=== PATIENT | male | born 1980 | race Caucasian/White ===

== ENCOUNTER 2022-11-22 07:15 | Inpatient (IN) | payer OTHER ==
[~2022-11-22] VITALS: Ht 177 cm; Wt 118.0 kg
--- NOTE | 2022-11-22 07:23 | ED Abdominal Pain ---
General Chief Complaint: Abdominal/GI Problems Stated Complaint: ABD PAIN History of Present Illness Date Seen by Provider: Nov 22, 2022 Time Seen by Provider: 07:23 Initial Comments 42-year-old male presents with epigastric pain. He reports that started yesterday radiates to his back. That he has some dry heaves with it. Patient reports a history of a gastric bypass in 2018. Reports that his stomach is really tight and painful. No actual vomiting, diarrhea. Patient reports that he has this pain on and off ever since the bypass that she is worse today that he "cannot take the pain more" patient has not followed up with GI specialist or primary care provider recently. Allergies and Home Medications Allergies Coded Allergies: No Known Drug Allergies (Unverified , 11/22/22) Patient Home Medication List Home Medication List Reviewed: Yes Review of Systems Review of Systems Constitutional: No chills, No fever Respiratory: Denies Cough, Denies Shortness of Air Cardiovascular: Denies Chest Pain, Denies Lightheadedness, Denies Palpitations Gastrointestinal: Abdominal Pain; Denies Diarrhea; Nausea; Denies Vomiting Genitourinary: No Symptoms Reported Musculoskeletal: no symptoms reported Skin: no symptoms reported Psychiatric/Neurological: No Symptoms Reported Endocrine: No Symptoms Reported Physical Exam Vital Signs Vital Signs - First Documented 11/22/22 07:23 Temp 35.7 Pulse 71 Resp 20 B/P (MAP) 133/91 (105) Pulse Ox 100 Capillary Refill : Height/Weight/BMI Height: '" Weight: lbs. oz. kg; BMI Method: General Appearance: WD/WN, no apparent distress Respiratory: lungs clear, normal breath sounds, no respiratory distress Cardiovascular: normal peripheral pulses, regular rate, rhythm Gastrointestinal: soft; No distended, No guarding, No rebound; tenderness (Mild epigastric) Extremities: normal range of motion, normal inspection Back: no CVA tenderness Neurologic/Psychiatric: alert, normal mood/affect, oriented x 3 Skin: normal color, warm/dry Progress/Results/Core Measures Results/Orders Lab Results Laboratory Tests Test 11/22/22 07:35 11/22/22 07:45 Range/Units White Blood Count 10.3 4.3-11.0 10^3/uL Red Blood Count 5.17 4.30-5.52 10^6/uL Hemoglobin 15.1 13.3-17.7 g/dL Hematocrit 46 40-54 % Mean Corpuscular Volume 88 80-99 fL Mean Corpuscular Hemoglobin 29 25-34 pg Mean Corpuscular Hemoglobin Concent 33 32-36 g/dL Red Cell Distribution Width 13.4 10.0-14.5 % Platelet Count 242 130-400 10^3/uL Mean Platelet Volume 8.2 L 9.0-12.2 fL Immature Granulocyte % (Auto) 0 % Neutrophils (%) (Auto) 70 42-75 % Lymphocytes (%) (Auto) 22 12-44 % Monocytes (%) (Auto) 8 0-12 % Eosinophils (%) (Auto) 0 0-10 % Basophils (%) (Auto) 0 0-10 % Neutrophils # (Auto) 7.2 1.8-7.8 10^3/uL Lymphocytes # (Auto) 2.2 1.0-4.0 10^3/uL Monocytes # (Auto) 0.8 0.0-1.0 10^3/uL Eosinophils # (Auto) 0.0 0.0-0.3 10^3/uL Basophils # (Auto) 0.0 0.0-0.1 10^3/uL Immature Granulocyte # (Auto) 0.0 0.0-0.1 10^3/uL Sodium Level 142 135-145 MMOL/L Potassium Level 3.8 3.6-5.0 MMOL/L Chloride Level 106 98-107 MMOL/L Carbon Dioxide Level 26 21-32 MMOL/L Anion Gap 10 5-14 MMOL/L Blood Urea Nitrogen 12 7-18 MG/DL Creatinine 0.96 0.60-1.30 MG/DL Estimat Glomerular Filtration Rate 101 BUN/Creatinine Ratio 13 Glucose Level 117 H 70-105 MG/DL Calcium Level 9.2 8.5-10.1 MG/DL Corrected Calcium 8.9 8.5-10.1 MG/DL Total Bilirubin 2.2 H 0.1-1.0 MG/DL Aspartate Amino Transf (AST/SGOT) 397 H 5-34 U/L Alanine Aminotransferase (ALT/SGPT) 316 H 0-55 U/L Alkaline Phosphatase 114 40-136 U/L Total Protein 8.0 6.4-8.2 GM/DL Albumin 4.4 3.2-4.5 GM/DL Lipase 38249 H 8-78 U/L Urine Color YELLOW Urine Clarity CLEAR Urine pH 6.0 5-9 Urine Specific Black 1.010 L 1.016-1.022 Urine Protein 1+ H NEGATIVE Urine Glucose (UA) NEGATIVE NEGATIVE Urine Ketones NEGATIVE NEGATIVE Urine Nitrite NEGATIVE NEGATIVE Urine Bilirubin NEGATIVE NEGATIVE Urine Urobilinogen 2.0 < = 1.0 MG/DL Urine Leukocyte Esterase NEGATIVE NEGATIVE Urine RBC (Auto) TRACE-I H NEGATIVE Urine RBC RARE /HPF Urine WBC NONE /HPF Urine Crystals NONE /LPF Urine Bacteria NEGATIVE /HPF Urine Casts NONE /LPF Urine Mucus SMALL H /LPF Urine Trichomonas N /HPF Urine Culture Indicated NO My Orders Orders - MARROQUIN,AMINA L DO Cbc With Automated Diff (11/22/22 07:27) Comprehensive Metabolic Panel (11/22/22 07:27) Lipase (11/22/22 07:27) Ua Culture If Indicated (11/22/22 07:27) Ondansetron Injection (Zofran Injectio (11/22/22 07:30) Famotidine Injection (Pepcid Injection) (11/22/22 07:27) Us Gallbladder 07375 (11/22/22 08:22) Morphine Injection (Morphine Injection (11/22/22 09:45) Lactated Ringers (Lr 1000 Ml Iv Solution (11/22/22 09:40) Zosyn 4.5 Gm (One Time Dose) (11/22/22 09:45) Medications Given in ED Current Medications Medications Dose Ordered Sig/Griffin Route Start Time Stop Time Status Last Admin Dose Admin Ondansetron HCl 4 mg ONCE ONCE IVP 11/22/22 07:30 11/22/22 07:31 DC 11/22/22 07:34 4 MG Vital Signs/I&O 11/22/22 07:23 Temp 35.7 Pulse 71 Resp 20 B/P (MAP) 133/91 (105) Pulse Ox 100 Progress Progress Note : Progress Note Patient's diagnostic studies were ordered reviewed and interpreted by me. Patient's labs are consistent with pancreatitis, cholecystitis. Patient ultrasound was ordered with results per radiology report. Patient has concerns for acute cholecystitis due to cholelithiasis. I called and discussed case with Dr. Jimenez, general surgeon. We will admit patient with IV fluids, pain control, nausea control, n.p.o. We will empirically start him on Zosyn for possible early cholecystitis. Patient was stable and transferred to the floor. Departure Impression Primary Impression: Cholecystitis with cholelithiasis Qualified Codes: K80.62 - Calculus of gallbladder and bile duct with acute cholecystitis without obstruction Additional Impression: Pancreatitis due to common bile duct stone Disposition: ADMITTED INPATIENT Condition: Stable Admissions Decision to Admit Reason: Admit from ER (General) Decision to Admit/Date: Nov 22, 2022 Time/Decision to Admit Time: 09:40 Departure-Patient Inst. Referrals: NO,LOCAL PHYSICIAN (PCP/Family) Primary Care Physician AMINA MARROQUIN DO Nov 22, 2022 07:23
[2022-11-22] MEDS ORDERED: FAMOTIDINE 20MG/2ML IV (PEPCID) IV STA (07:27)
[2022-11-22] MEDS ORDERED: ONDANSETRON 4 MG/2 ML (SDV) Z0FRAN IVP ONE (07:30)
[2022-11-22 07:42] LABS: BASOPHILS % (AUTO) 0 % (0-10); EOSINOPHILS % (AUTO) 0 % (0-10); HEMATOCRIT 46 % (40-54); HEMOGLOBIN 15.1 g/dL (13.3-17.7); LYMPHOCYTES # (AUTO) 2.2 10^3/uL (1.0-4.0); LYMPHOCYTES % (AUTO) 22 % (12-44); MEAN CORPUSCULAR HEMOGLOBIN 29 pg (25-34); MEAN CORPUSCULAR HGB CONC 33 g/dL (32-36); MEAN CORPUSCULAR VOLUME 88 fL (80-99); MEAN PLATELET VOLUME 8.2 fL (9.0-12.2); MONOCYTES # (AUTO) 0.8 10^3/uL (0.0-1.0); MONOCYTES % (AUTO) 8 % (0-12); NEUTROPHILS # (AUTO) 7.2 10^3/uL (1.8-7.8); NEUTROPHILS % (AUTO) 70 % (42-75); PLATELET COUNT 242 10^3/uL (130-400); WHITE BLOOD COUNT 10.3 10^3/uL (4.3-11.0)
[2022-11-22 07:50] LABS: BILIRUBIN,URINE NEGATIVE (NEGATIVE); CLARITY,URINE CLEAR; COLOR,URINE YELLOW; GLUCOSE, URINE (UA) NEGATIVE (NEGATIVE); KETONES,URINE NEGATIVE (NEGATIVE); LEUKOCYTE ESTERASE ,URINE NEGATIVE (NEGATIVE); NITRITE,URINE NEGATIVE (NEGATIVE); PROTEIN,URINE 1+ (NEGATIVE)
[2022-11-22 08:02] LABS: ALBUMIN 4.4 GM/DL (3.2-4.5); BILIRUBIN,TOTAL 2.2 MG/DL (0.1-1.0); CALCIUM 9.2 MG/DL (8.5-10.1); CREATININE SERUM 0.96 MG/DL (0.60-1.30); POTASSIUM 3.8 MMOL/L (3.6-5.0)
[2022-11-22 08:03] LABS: BACTERIA,URINE NEGATIVE /HPF; RBC,URINE RARE /HPF
[2022-11-22 08:04] LABS: TRICHOMONAS,URINE N /HPF
--- NOTE | 2022-11-22 09:21 | Diagnostic Imaging Report ---
EXAMINATION: US Abdomen limited. TECHNIQUE: Multiple real-time grayscale images were obtained over the right upper quadrant in various projections. REASON FOR EXAM: Abdominal pain. Elevated LFTs. COMPARISON: None. FINDINGS: The liver is normal in size and shape. The liver echogenicity is increased. There are no focal lesions. No intrahepatic biliary dilatation is present. The common bile duct is not dilated and measures 6 mm. The main portal vein is hepatopetal. No ascites in the upper abdomen. Multiple gallstones are seen within the gallbladder lumen. The gallbladder wall is mildly thickened measuring 4 to 6 mm. No pericholecystic fluid. Sonographic Martinez's sign is negative. The visualized portion of the head of the pancreas are within normal limits. The body and tail of the pancreas are not well visualized due to overlying bowel gas. The visualized portions of the IVC appear normal. The aorta is not visualized due to overlapping bowel gas. The right kidney measures approximately 11.6 cm in length and has a normal appearance. IMPRESSION: 1. Cholelithiasis with gallbladder wall thickening. Findings can be seen with acute cholecystitis. Recommend surgical consultation to further evaluate. 2. Hepatic steatosis. No focal hepatic lesions. No ascites. Dictated by: Dictated on workstation # [id number]
[2022-11-22] MEDS ORDERED: LACTATED RINGERS 1,000 ML IV STA (09:40)
[2022-11-22] MEDS ORDERED: PIPERACILLIN SODIUM/TAZOBACTAM 4.5 GM in NS (IVPB) 100 ML IV ONE (09:45)
[2022-11-22] MEDS ORDERED: morphine INJ 10 MG/ML 1ML (SYR OR VIAL) IVP ONE (09:45)
[2022-11-22 10:49] VITALS: BP 170/78
[2022-11-22] MEDS: LACTATED RINGERS 1,000 ML IV SCH ×2 (11:10→17:58)
[2022-11-22] MEDS ORDERED: CATHETER FLUSH 10 ML SYR IVP PRN (11:15)
[2022-11-22] MEDS ORDERED: morphine INJ 4 MG/ML 1 ML (VIAL/SYRINGE) IV PRN (11:15)
[2022-11-22 11:23] VITALS: BP 152/83
[2022-11-22] MEDS ORDERED: fentaNYL INJ 100 MCG/2 ML AMP IVP PRN (12:30)
--- NOTE | 2022-11-22 12:58 | HISTORY AND PHYSICAL ---
The patient is a 42-year-old male who presented to the emergency department with acute onset of pain in the upper abdominal quadrants. He states that this started yesterday and persisted and even worsened over time. He had reported mild nausea; however, no vomiting. He reports that he has not experienced any change in his bowel habits. He reports that he had another similar episode in August of this year and has also had some milder episodes; however, were much less in severity. An ultrasound was performed, which did show a gallbladder wall thickening as well as multiple gallstones. The patient also has elevated liver function enzymes including total bilirubin of 2.2 and a lipase of 12,796 consistent with gallstone pancreatitis. At this time, his initial Moses criteria score is 1. PAST MEDICAL HISTORY: History of morbid obesity. PAST SURGERIES: Laparoscopic gastric sleeve resection. ALLERGIES: No known drug allergies. MEDICATIONS: None. SOCIAL HISTORY: Negative smoke, negative alcohol. FAMILY HISTORY: Noncontributory. VITAL SIGNS: Temperature 37.5, blood pressure 152/83, pulse 48, respirations 20, pulse ox 98% on room air. REVIEW OF SYSTEMS: A well-nourished male, currently in no acute distress. He is not experiencing any shortness of breath or difficulty breathing. No chest pain, palpitations, diaphoresis. No nausea, vomiting with crampy upper abdominal quadrant pain. No diarrhea, no constipation, no red blood per rectum, no dark tarry stools. No fever, chills, no recent inadvertent weight loss. All other review of systems negative. PHYSICAL EXAM: CHEST: Clear. Good breath sounds bilaterally. HEART: Regular, no murmurs. EXTREMITIES: No lower extremity edema. Negative Homans sign. HEENT: No scleral icterus. No cervical lymphadenopathy. ABDOMEN: Soft, nondistended. There is pain in the upper abdominal quadrants with voluntary guarding, no rebound. No hernias. SKIN: Warm, dry. LABORATORY DATA: WBC 10.3, hemoglobin 15.1, hematocrit 46, platelets 242. BUN 12, creatinine 0.96, total bilirubin 2.2, AST 397, ALT 316, lipase was 12,796. ASSESSMENT AND PLAN: A 42-year-old male with gallstone pancreatitis. The natural history of this disease process was explained to the patient. It was explained to him that most of these stones pass on their own and we will continue with conservative management for now with IV hydration and bowel rest and monitor his daily laboratory work including a comprehensive metabolic panel and amylase and lipase. Hopefully, the stone will pass and his labs will normalize and once this occurs and he is physically asymptomatic, we will then proceed with a laparoscopic cholecystectomy for the definitive treatment modality. Job ID: [id number] DocumentID: [id number] Dictated Date: 11/22/2022 12:37:55 Sewing Trimmer Date: 11/22/2022 12:55:00 Dictated By: ZANDER CARDOSO MD
[2022-11-22] MEDS: HYDROcodone/APAP 7.5 MG/325 MG (LORTAB, LORCET PLUS) TABLET PO PRN ×2 (13:16→20:10)
[2022-11-22] MEDS: PIPERACILLIN SODIUM/TAZOBACTAM 4.5 GM in NS (IVPB) 100 ML IV SCH ×2 (15:34→23:59)
[2022-11-22 15:51] VITALS: BP 188/77
[2022-11-22] MEDS: ONDANSETRON 4 MG/2 ML (SDV) Z0FRAN IV PRN (17:58)
[2022-11-22 19:46] VITALS: BP 165/76
[2022-11-22 23:31] VITALS: BP 159/83
[2022-11-23] MEDS: LACTATED RINGERS 1,000 ML IV SCH ×3 (01:22→15:41)
[2022-11-23 03:21] VITALS: BP 160/75
[2022-11-23] MEDS: ONDANSETRON 4 MG/2 ML (SDV) Z0FRAN IV PRN ×2 (04:22→09:47)
[2022-11-23 05:34] LABS: BASOPHILS % (AUTO) 0 % (0-10); EOSINOPHILS % (AUTO) 0 % (0-10); HEMATOCRIT 44 % (40-54); HEMOGLOBIN 14.8 g/dL (13.3-17.7); LYMPHOCYTES # (AUTO) 1.4 10^3/uL (1.0-4.0); LYMPHOCYTES % (AUTO) 10 % (12-44); MEAN CORPUSCULAR HEMOGLOBIN 30 pg (25-34); MEAN CORPUSCULAR HGB CONC 34 g/dL (32-36); MEAN CORPUSCULAR VOLUME 89 fL (80-99); MEAN PLATELET VOLUME 8.7 fL (9.0-12.2); MONOCYTES % (AUTO) 7 % (0-12); NEUTROPHILS # (AUTO) 11.7 10^3/uL (1.8-7.8); NEUTROPHILS % (AUTO) 82 % (42-75); PLATELET COUNT 226 10^3/uL (130-400); WHITE BLOOD COUNT 14.2 10^3/uL (4.3-11.0)
[2022-11-23 05:49] LABS: CALCIUM 8.8 MG/DL (8.5-10.1); CREATININE SERUM 0.9 MG/DL (0.60-1.30); POTASSIUM 4.1 MMOL/L (3.6-5.0)
[2022-11-23 06:06] LABS: BAND NEUTROPHILS 2 %; LYMPHOCYTES % (MANUAL) 7 %; MONOCYTES % (MANUAL) 6 %; NEUTROPHILS % (MANUAL) 85 %; RBC MORPH NORMAL
[2022-11-23 07:51] VITALS: BP 143/70
[2022-11-23] MEDS: PIPERACILLIN SODIUM/TAZOBACTAM 4.5 GM in NS (IVPB) 100 ML IV SCH (07:57)
[2022-11-23] MEDS: HYDROcodone/APAP 7.5 MG/325 MG (LORTAB, LORCET PLUS) TABLET PO PRN ×2 (09:47→18:40)
--- NOTE | 2022-11-23 11:10 | Progress Note ---
Subjective Date Seen by a Provider: Nov 23, 2022 Time Seen by a Provider: 10:40 Subjective/Events-last exam Patient seen with Dr. Jimenez. Patient reports pain better and nausea improved but still occasionally. Denies any fever or chills. tolerating clear liquids. Objective Exam Vital Signs Date Time Temp Pulse Resp B/P (MAP) Pulse Ox O2 Delivery O2 Flow Rate FiO2 11/23/22 08:10 Room Air 11/23/22 07:51 36.9 55 20 143/70 (94) 96 Room Air 11/23/22 03:21 37.2 64 16 160/75 (103) 96 Room Air 11/22/22 23:31 37.5 63 16 159/83 (108) 95 Room Air 11/22/22 20:05 Room Air 11/22/22 19:46 37.2 50 18 165/76 (105) 98 Room Air 11/22/22 15:51 36.7 45 17 188/77 (114) 98 Room Air 11/22/22 11:23 37.5 48 20 152/83 (106) 98 Room Air I & O 11/23/22 07:00 Intake Total 2250 ml Balance 2250 ml Capillary Refill : Less Than 3 Seconds General Appearance: No Apparent Distress, WD/WN Neck: Normal Inspection, Supple Respiratory: No Accessory Muscle Use, No Respiratory Distress Gastrointestinal: normal bowel sounds, non tender, soft Extremity: Normal Inspection, Normal Range of Motion Neurologic/Psychiatric: Alert, Oriented x3 Skin: Normal Color, Warm/Dry Results Lab Laboratory Tests 11/23/22 04:53: White Blood Count 14.2H, Red Blood Count 4.99, Hemoglobin 14.8, Hematocrit 44, Mean Corpuscular Volume 89, Mean Corpuscular Hemoglobin 30, Mean Corpuscular Hemoglobin Concent 34, Red Cell Distribution Width 13.7, Platelet Count 226, Mean Platelet Volume 8.7L, Immature Granulocyte % (Auto) 1, Neutrophils (%) (Auto) 82H, Lymphocytes (%) (Auto) 10L, Monocytes (%) (Auto) 7, Eosinophils (%) (Auto) 0, Basophils (%) (Auto) 0, Neutrophils # (Auto) 11.7H, Lymphocytes # (Auto) 1.4, Monocytes # (Auto) 1.0, Eosinophils # (Auto) 0.0, Basophils # (Auto) 0.0, Immature Granulocyte # (Auto) 0.1, Neutrophils % (Manual) 85, Lymphocytes % (Manual) 7, Monocytes % (Manual) 6, Band Neutrophils 2, Blood Morphology Comment NORMAL, Sodium Level 139, Potassium Level 4.1, Chloride Level 105, Carbon Dioxide Level 23, Anion Gap 11, Blood Urea Nitrogen 9, Creatinine 0.90, Estimat Glomerular Filtration Rate 109, BUN/Creatinine Ratio 10, Glucose Level 100, Calcium Level 8.8, Amylase Level 851H, Lipase 812H 11/23/22 10:59: Assessment/Plan Assessment/Plan Assess & Plan/Chief Complaint A 42 year old male with a gallstone pancreatitis VSS WBC up to 14.2 - will switch abx to cipro and flagyl Lipase down to 812 Continue with pain, nausea meds as needed Clear liquids Continue to monitor cbc, cmp, amylase, and lipase Laparoscopic cholecystectomy once labs normalize JESSIE MENDIOLA APRN Nov 23, 2022 11:10
[2022-11-23 11:15] LABS: POTASSIUM 4.1 MMOL/L (3.6-5.0)
[2022-11-23 11:18] LABS: TOTAL PROTEIN 7.3 GM/DL (6.4-8.2)
[2022-11-23 11:20] LABS: BILIRUBIN,TOTAL 1.9 MG/DL (0.1-1.0)
[2022-11-23 11:22] LABS: CREATININE SERUM 0.88 MG/DL (0.60-1.30)
[2022-11-23 11:35] VITALS: BP 155/74
[2022-11-23] MEDS ORDERED: METR-145 PO (12:24)
[2022-11-23] MEDS ORDERED: HYDR-3817 PO (12:24)
[2022-11-23] MEDS ORDERED: CIPR500T5 PO (12:24)
--- NOTE | 2022-11-23 12:25 | Discharge Inst-Surgical ---
D/C Lap Instructions-JANAE New, Converted, or Re-Newed RX: RX on Chart Will call patient to schedule surgery(laparoscopic cholecystectomy) Get lab work on prescription in chart on friday(11/26) Activity as tolerated No driving for 24 hours No driving while on pain medications Symptoms to Report: Fever over 101 degree F, Nausea/Vomiting Infection Signs and Symptoms to report: Increased redness, Foul odor of wound, Increased drainage Bathing instructions: May shower Operative Area Clean/Dry; Keep incision clean/dry If any problems/questions: Contact your physician or go to Emergency Room ZANDER CARDOSO MD Nov 23, 2022 12:25
[2022-11-23 15:36] VITALS: BP 162/77
[2022-11-23 19:28] VITALS: BP 119/72
[2022-11-23] MEDS: CIPROFLOXACIN IV 400MG/200ML 200 ML IV SCH (19:47)
[2022-11-23] MEDS: metroNIDAZOLE 500MG/100ML IVPB 100 ML IV SCH (20:47)
[2022-11-23 23:26] VITALS: BP 152/78
[2022-11-24] MEDS: LACTATED RINGERS 1,000 ML IV SCH (02:23)
[2022-11-24 03:24] VITALS: BP 147/79
[2022-11-24 05:42] LABS: BASOPHILS % (AUTO) 0 % (0-10); EOSINOPHILS % (AUTO) 0 % (0-10); HEMATOCRIT 42 % (40-54); HEMOGLOBIN 13.7 g/dL (13.3-17.7); LYMPHOCYTES # (AUTO) 1.6 10^3/uL (1.0-4.0); LYMPHOCYTES % (AUTO) 10 % (12-44); MEAN CORPUSCULAR HEMOGLOBIN 29 pg (25-34); MEAN CORPUSCULAR HGB CONC 33 g/dL (32-36); MEAN CORPUSCULAR VOLUME 89 fL (80-99); MEAN PLATELET VOLUME 8.6 fL (9.0-12.2); MONOCYTES # (AUTO) 1.2 10^3/uL (0.0-1.0); MONOCYTES % (AUTO) 7 % (0-12); NEUTROPHILS # (AUTO) 13.8 10^3/uL (1.8-7.8); NEUTROPHILS % (AUTO) 83 % (42-75); PLATELET COUNT 211 10^3/uL (130-400); WHITE BLOOD COUNT 16.7 10^3/uL (4.3-11.0)
[2022-11-24 06:09] LABS: ALBUMIN 3.8 GM/DL (3.2-4.5); BILIRUBIN,TOTAL 1.4 MG/DL (0.1-1.0); CALCIUM 8.9 MG/DL (8.5-10.1); CREATININE SERUM 0.79 MG/DL (0.60-1.30); POTASSIUM 3.7 MMOL/L (3.6-5.0); TOTAL PROTEIN 6.9 GM/DL (6.4-8.2)
[2022-11-24 07:24] VITALS: BP 147/77
[2022-11-24] MEDS: CIPROFLOXACIN IV 400MG/200ML 200 ML IV SCH (07:38)
[2022-11-24] MEDS: metroNIDAZOLE 500MG/100ML IVPB 100 ML IV SCH (08:45)
--- NOTE | 2022-11-24 09:32 | Progress Note ---
Subjective Date Seen by a Provider: Nov 24, 2022 Time Seen by a Provider: 09:25 Subjective/Events-last exam Patient seen with Dr. Jimenez. Patient reports doing well. Tolerating clear liquid diet. Ambulating. Denies any pain, nausea or vomiting. Objective Exam Vital Signs Date Time Temp Pulse Resp B/P (MAP) Pulse Ox O2 Delivery O2 Flow Rate FiO2 11/24/22 07:55 Room Air 11/24/22 07:24 36.6 64 18 147/77 (100) 96 Room Air 11/24/22 03:24 36.9 66 16 147/79 (101) 93 Room Air 11/23/22 23:26 36.5 69 16 152/78 (102) 96 Room Air 11/23/22 19:50 Room Air 11/23/22 19:28 36.0 110 18 119/72 (88) 94 Room Air 11/23/22 15:36 37.8 62 18 162/77 (105) 96 Room Air 11/23/22 11:35 36.7 59 20 155/74 (101) 97 Room Air I & O 11/24/22 07:00 Intake Total 2440 ml Balance 2440 ml Capillary Refill : Less Than 3 Seconds General Appearance: No Apparent Distress, WD/WN Neck: Normal Inspection, Supple Respiratory: No Accessory Muscle Use, No Respiratory Distress Gastrointestinal: normal bowel sounds, non tender, soft Extremity: Normal Inspection, Normal Range of Motion Neurologic/Psychiatric: Alert, Oriented x3 Skin: Normal Color, Warm/Dry Results Lab Laboratory Tests 11/23/22 10:59: Sodium Level 140, Potassium Level 4.1, Chloride Level 105, Carbon Dioxide Level 23, Anion Gap 12, Blood Urea Nitrogen 8, Creatinine 0.88, Estimat Glomerular Filtration Rate 110, BUN/Creatinine Ratio 9, Glucose Level 98, Calcium Level 9.0, Corrected Calcium 9.0, Total Bilirubin 1.9H, Aspartate Amino Transf (AST/SGOT) 95H, Alanine Aminotransferase (ALT/SGPT) 207H, Alkaline Phosphatase 113, Total Protein 7.3, Albumin 4.0 11/24/22 05:18: Sodium Level 139, Potassium Level 3.7, Chloride Level 105, Carbon Dioxide Level 24, Anion Gap 10, Blood Urea Nitrogen 7, Creatinine 0.79, Estimat Glomerular Filtration Rate 114, BUN/Creatinine Ratio 9, Glucose Level 98, Calcium Level 8.9, Corrected Calcium 9.1, Total Bilirubin 1.4H, Aspartate Amino Transf ( T/SGOT) 48H, Alanine Aminotransferase (ALT/SGPT) 140H, Alkaline Phosphatase 93, Total Protein 6.9, Albumin 3.8, White Blood Count 16.7H, Red Blood Count 4.72, Hemoglobin 13.7, Hematocrit 42, Mean Corpuscular Volume 89, Mean Corpuscular Hemoglobin 29, Mean Corpuscular Hemoglobin Concent 33, Red Cell Distribution Width 13.7, Platelet Count 211, Mean Platelet Volume 8.6L, Immature Granulocyte % (Auto) 1, Neutrophils (%) (Auto) 83H, Lymphocytes (%) (Auto) 10L, Monocytes (%) (Auto) 7, Eosinophils (%) (Auto) 0, Basophils (%) (Auto) 0, Neutrophils # (Auto) 13.8H, Lymphocytes # (Auto) 1.6, Monocytes # (Auto) 1.2H, Eosinophils # (Auto) 0.0, Basophils # (Auto) 0.0, Immature Granulocyte # (Auto) 0.1, Amylase Level 405H, Lipase 232H Assessment/Plan Assessment/Plan Assess & Plan/Chief Complaint A 42 year old male with a gallstone pancreatitis VSS WBC up to 16.7 - On cipro and flagyl Total bilirubin - down to 1.4 AST - down to 48 ALT - down to 140 Amylase - down to 405 Lipase down to 232 Will DC patient with pain meds, nausea meds, and abx. Will have him repeat cbc, cmp, amylase, and lipase in 2 days and proceed with low-fat/clear liquid diet. When labs normalize we will proceed with laparoscopic cholecystectomy on an outpatient basis JESSIE MENDIOLA APRN Nov 24, 2022 09:32
== END 2022-11-24 09:55 | disposition home or self-care (01) | DRG 439 ==
LOC: ER 07:20 → 4TH 10:04
PROVIDERS: ADMIT Surgery; ATTEND Surgery
DX: K85.10 Biliary acute pancreatitis without necrosis or infection (principal); K80.62 Calculus of gallbladder and bile duct with acute cholecystitis without obstruction; E66.01 Morbid (severe) obesity due to excess calories; Z68.37 Body mass index [BMI] 37.0-37.9, adult; Z98.84 Bariatric surgery status
CPT/HCPCS: 36415; 76705; 80048; 80053; 81000; 82150; 83690; 85007; 85025; 85027; G0378

== ENCOUNTER 2022-11-26 12:02 | Outpatient (CLI) | payer OTHER ==
[~2022-11-26] VITALS: Ht 177.8 cm; Wt 118.0 kg
== END 2022-11-26 13:29 | disposition home or self-care (01) ==
LOC: PREOP 12:02
PROVIDERS: ATTEND Surgery
DX: Z01.818 Encounter for other preprocedural examination (principal)

== ENCOUNTER → 2022-11-26 | Outpatient (CLI) | payer OTHER ==
[~2022-11-26] MED LIST: CIPR500T5 PO; HYDR-3817 PO; METR-145 PO
[2022-11-26 10:40] LABS: HEMATOCRIT 43 % (40-54); HEMOGLOBIN 13.9 g/dL (13.3-17.7); MEAN CORPUSCULAR HEMOGLOBIN 29 pg (25-34); MEAN CORPUSCULAR HGB CONC 33 g/dL (32-36); MEAN CORPUSCULAR VOLUME 89 fL (80-99); MEAN PLATELET VOLUME 8.2 fL (9.0-12.2); PLATELET COUNT 231 10^3/uL (130-400)
[2022-11-26 11:16] LABS: BILIRUBIN,TOTAL 0.9 MG/DL (0.1-1.0); CALCIUM 9.4 MG/DL (8.5-10.1); CREATININE SERUM 0.87 MG/DL (0.60-1.30); TOTAL PROTEIN 8.1 GM/DL (6.4-8.2)
[2022-11-26 11:17] LABS: ALBUMIN 4.1 GM/DL (3.2-4.5)
== END ==
LOC: LAB FS 10:23
PROVIDERS: ATTEND Surgery
DX: Z87.19 Personal history of other diseases of the digestive system (principal)
CPT/HCPCS: 36415; 80053; 82150; 83690; 85027

== ENCOUNTER 2022-11-28 14:09 | Day surgery (SDC) | payer OTHER ==
[2022-11-28] VITALS (10 sets, daily range): BP systolic 113–148; BP diastolic 66–91
[~2022-11-28] VITALS: Ht 177.8 cm; Wt 118.0 kg
--- NOTE | 2022-11-28 14:35 | Progress Note-Pre Operative ---
Pre-Operative Progress Note Date H&P Reviewed: Nov 28, 2022 Time H&P Reviewed: 14:35 History & Physical: H&P Reviewed, Patient Examed, No changes noted Pre-Operative Diagnosis: Chronic calculous cholecystitis, hx gallstone pancreatitis JESSIE MENDIOLA ASSISTANT PROFESSOR OF SURGERY Nov 28, 2022 14:35
[2022-11-28] MEDS ORDERED: HYDR-3817 PO (14:36)
--- NOTE | 2022-11-28 14:37 | Discharge Inst-Surgical ---
D/C Lap Instructions-KIDO Reconcile Patient Problems Problems Reviewed?: Yes New, Converted, or Re-Newed RX: RX on Chart Follow Up Appt in 2 weeks Activity as tolerated No driving for 24 hours No driving while on pain medications Incentive Spirometry use every 2 hours while awake Regular Diet Symptoms to Report: Fever over 101 degree F, Nausea/Vomiting Infection Signs and Symptoms to report: Increased redness, Foul odor of wound, Increased drainage Bathing instructions: May shower Operative Area Clean/Dry; Keep incision clean/dry If any problems/questions: Contact your physician or go to Emergency Room JESSEI MENDIOLA APRN Nov 28, 2022 14:37
[2022-11-28] MEDS ORDERED: ONDANSETRON 4 MG/2 ML (SDV) Z0FRAN IVP PRN ×2 (14:45→18:30)
[2022-11-28] MEDS ORDERED: morphine INJ 10 MG/ML 1ML (SYR OR VIAL) IVP PRN (14:45)
[2022-11-28] MEDS ORDERED: ACETAMINOPHEN 325 MG TABLET PO PRN (14:45)
[2022-11-28] MEDS ORDERED: HYDROcodone/APAP 5 MG/325 MG (LORTAB) TAB PO ONE (14:45)
[2022-11-28] MEDS: LACTATED RINGERS 1,000 ML IV PRN ×2 (15:18→18:24)
[2022-11-28] MEDS ORDERED: NS (IVPB) 50 ML ONE (15:21)
[2022-11-28] MEDS ORDERED: ceFAZolin INJECTION 2,000 MG ONE (15:21)
[2022-11-28] MEDS ORDERED: ceFAZolin INJECTION 2,000 MG in NS (IVPB) 50 ML IV ONE (15:30)
[2022-11-28] MEDS ORDERED: BUP/EPI 0.5% 1:200,000 (SENSORCAINE) 30 ML VIAL ONE (16:51)
[2022-11-28] MEDS ORDERED: fentaNYL INJ 100 MCG/2 ML AMP ONE (16:56)
[2022-11-28] MEDS ORDERED: ROCURONIUM 50 MG/5 ML (ZEMURON) VIAL IV ONE (16:56)
[2022-11-28] MEDS ORDERED: MIDAZOLAM 2 MG/2 ML (VERSED) VIAL ONE (16:56)
[2022-11-28] MEDS ORDERED: LIDOCAINE PF 2% 5 ML (XYLOCAINE) VIAL ONE (16:56)
[2022-11-28] MEDS ORDERED: proPOfol 200 MG/20 ML (DIPRIVAN) VIAL IV ONE (16:56)
[2022-11-28] MEDS ORDERED: ONDANSETRON 4 MG/2 ML (SDV) Z0FRAN ONE (16:56)
[2022-11-28] MEDS ORDERED: ATROPINE INJ 0.4 MG/ML SDV ONE (17:45)
[2022-11-28] MEDS ORDERED: NEOSTIGMINE 3 MG/3 ML VIAL ONE (17:57)
[2022-11-28] MEDS ORDERED: GLYCOPYRROLATE 0.2 MG/ML (ROBINUL) 2 ML VIAL ONE ×2 (17:57→18:09)
[2022-11-28] MEDS ORDERED: KETOROLAC 30 MG/ML VIAL ONE (17:59)
--- NOTE | 2022-11-28 18:12 | Progress Note-Post Operative ---
Post-Operative Progess Note Surgeon (s)/Visual And Stock Associate (s) Surgeon ZANDER CARDOSO MD Visual And Stock Associate: kristel valverde PADDED BOX SEWER Pre-Operative Diagnosis Chronic calculous cholecystitis, hx gallstone pancreatitis Post-Operative Diagnosis same Procedure & Operative Findings Date of Procedure 11/28/22 Procedure Performed/Findings laparoscopic cholecystectomy Anesthesia Type get Estimated Blood Loss Estimated blood loss (mL): minimal Specimens/Packing Specimens Removed gallbladder ZANDER CARDOSO MD Nov 28, 2022 18:12
[2022-11-28] MEDS ORDERED: SEVOFLURANE (ULTANE) 15 ML INHAL SOLN ONE (18:16)
[2022-11-28] MEDS ORDERED: MEPERIDINE (DEMEROL) INJ 50 MG/ML IVP ONE (18:30)
[2022-11-28] MEDS ORDERED: PROMETHAZINE INJ 25 MG/ML (PHENERGAN) AMP IVP ONE (18:30)
[2022-11-28] MEDS ORDERED: HYDROcodone/APAP 5 MG/325 MG (LORTAB) TAB ONE (19:34)
--- NOTE | 2022-11-28 19:37 | Anesthesia-General Post-Op ---
General Patient Condition Mental Status/LOC: Same as Preop Cardiovascular: Satisfactory Nausea/Vomiting: Absent Respiratory: Satisfactory Pain: Controlled Complications: Absent Post Op Complications Complications None Follow Up Care/Instructions Patient Instructions None needed. Anesthesia/Patient Condition Patient Condition Patient is doing well, no complaints, stable vital signs, no apparent adverse anesthesia problems. No complications reported per nursing. JAGRUTI LYNN CRNA Nov 28, 2022 19:37
--- NOTE | 2022-11-28 23:00 | OPERATIVE REPORT ---
DATE OF SERVICE: 11/28/2022 PREOPERATIVE DIAGNOSES: History of gallstone pancreatitis and chronic calculous cholecystitis. POSTOPERATIVE DIAGNOSES: History of gallstone pancreatitis and chronic calculous cholecystitis. PROCEDURE: Laparoscopic cholecystectomy. SURGEON: Zander Cardoso MD REHABILITATION COORDINATOR: Ej Orr APRN ANESTHESIA: General endotracheal. ESTIMATED BLOOD LOSS: Minimal. FINDINGS: Same as postoperative diagnoses. DISPOSITION: The patient tolerated the procedure well. INDICATIONS: The patient is a 42-year-old male who presented to the emergency department with acute onset of pain in the right upper abdominal quadrant. He had reported that the pain has started the day previous and worsened over time. This was associated with some nausea; however, no vomiting. He also had reported a similar experience in August of this year, which ultimately went away on its own. He was admitted, and an ultrasound was performed, which did show gallbladder wall thickening as well as multiple gallstones. The patient also had elevated liver enzymes with a total bilirubin of 2.2 and a lipase of 12,000 consistent with gallstone pancreatitis. On that admission, his Sandpoint criteria was 1. The patient was admitted and treated conservatively with a clear liquid diet as well as IV antibiotics. His bilirubin and pancreatic enzymes trended in the normal direction. The patient was then discharged home and given specific instructions to repeat labs and his laboratory work did normalize and now he is here for laparoscopic cholecystectomy. DESCRIPTION OF PROCEDURE: The patient was brought to the operating room, laid supine on the table. After adequate IV pain and sedative medications and general endotracheal intubation, the abdomen was prepped and draped in standard surgical fashion. A 0.5% Marcaine with epinephrine was then used to anesthetize the overlying skin in the left upper abdominal quadrant and a transverse skin incision was made using a #15 blade. An 0 silk suture was applied to the medial aspect of the incision for retraction and a Veress needle inserted with a low opening pressure of 0 mmHg. The abdomen was then insufflated to 15 mmHg pressure. The Veress needle removed and a 5 mm XL trocar placed followed by a 5 mm 45-degree angle laparoscope visualized the peritoneal cavity. A 4-quadrant abdominal exploration was performed. There was a distended gallbladder with a mild gallbladder wall thickening. No pericholecystic fluid. Under direct visualization, we then proceeded to place a supraumbilical 10 mm port after the skin and peritoneal lining were anesthetized using 0.5% Marcaine with epinephrine and a transverse skin incision made using a #15 blade. The patient was then placed in reverse Trendelenburg position as well as plane right side up, left side down. The fundus of the gallbladder was then retracted anteriorly and superiorly. The hepatoduodenal ligament was then dissected using blunt dissection as well as electrocautery on the hook instrument as well as a [place] dissector. The entire critical view of safety was identified including the triangle of Calot as well as the cystic duct and artery as the only two structures going into the gallbladder as well as the cystic plate behind the proximal gallbladder. A timeout was then taken and the cystic duct and artery were then clipped proximally, distally and cut with EndoShears. The gallbladder was then dissected off of the liver bed using cautery on the hook instrument with visualization of good hemostasis as well as no leaking ducts of Luschka. The gallbladder was removed through the 10 mm port site using an EndoCatch bag. The 10 mm port site fascia and peritoneum were then closed under direct visualization using a Milo-Blanca device and 0 Vicryl suture. The abdomen was then desufflated and remaining ports removed. All skin incisions were closed using 4-0 Monocryl running subcuticular sutures. Wounds were then cleaned and covered with Dermabond. The patient tolerated the procedure well. We will start IV and oral pain medication as well as a clear liquid diet. Once he is tolerating clears, has good pain control with oral pain medication and is ambulating well, we will discharge him home where he will be instructed to do no heavy lifting or exertion for the next 2 weeks. Job ID: [id number] DocumentID: [id number] Dictated Date: 11/28/2022 18:20:57 Founder And Chief Executive Officer Date: 11/28/2022 22:57:00 Dictated By: ZANDER CARDOSO MD [facility] CENTERLucy
== END 2022-11-28 20:00 | disposition home or self-care (01) ==
LOC: SDC 14:09
PROVIDERS: ATTEND Surgery
DX: K85.10 Biliary acute pancreatitis without necrosis or infection (principal); K80.10 Calculus of gallbladder with chronic cholecystitis without obstruction; E66.9 Obesity, unspecified; Z68.37 Body mass index [BMI] 37.0-37.9, adult; Z28.310 Unvaccinated for COVID-19
CPT/HCPCS: 87081